=== PATIENT | female | born 1955 | race Caucasian/White ===

== ENCOUNTER 2017-07-28 11:35 | Emergency (ER) | payer MEDICAID ==
[~2017-07-28] VITALS: Ht 167.6 cm; Wt 71.5 kg
[2017-07-28 11:40] VITALS: Ht 167.6 cm; Wt 71.5 kg
[2017-07-28] MEDS ORDERED: CEPH-443 PO (13:02)
[2017-07-28] MEDS ORDERED: POLY10DR19 BOTH EYES (13:02)
--- NOTE | 2017-07-28 13:56 | ERD ---
ER Documentation Chief Complaint Date/Time DATE: 07/28/17 TIME: 13:42 Chief Complaint Complains of roight eye swelling and pain x 2 days HPI This is a 62-year-old female presents to the ER stating that she has some swelling below her right eye which started 2 days ago. Patient states that she does have mild eye redness, however does not have any discharge. Patient denies any trauma to the area and she denies any headaches, vision loss, vision changes. Denies any fevers or chills. She denies any eyeball pain. Patient is also complaining of a cold sore to her lower lip. Patient has been very stressed lately because her daughters have been sick. ROS 12 point review of systems was done, all negative except per HPI. Medications Home Meds Active Scripts Polymyxin B Sulfate-TMP* (Polymyxin B-TMP Eye Drops*) 10 Ml Drops, 1 DROP BOTH EYES QID for 7 Days, EA Prov:ELIGIO,VIVIANE C 07/28/17 Cephalexin* (Keflex*) 500 Mg Capsule, 500 MG PO BID for 7 Days, CAP Prov:ELIGIO,VIVIANE C 07/28/17 Allergies Allergies: Coded Allergies: morphine (Verified Allergy, Intermediate, 07/28/17) PMhx/Soc Medical and Surgical Hx: pt denies Medical Hx, pt denies Surgical Hx Hx Alcohol Use: No Hx Substance Use: No Hx Tobacco Use: No Smoking Status: Current every day smoker Physical Exam Vitals Vital Signs Date Time Temp Pulse Resp B/P Pulse Ox O2 Delivery O2 Flow Rate FiO2 07/28/17 11:40 98.6 65 20 133/69 98 Physical Exam GENERAL: The patient is well developed and appropriate for usual state of health , in no apparent distress. HEENT: Atraumatic. Conjunctive is slightly erythematous with no discharge. Pupils equal, round, and reactive to light. Extraocular muscles are grossly intact are not painful. Patient has some slight swelling below her right eye, that is ttp and slightly warm to the touch. NECK: C-spine is soft and supple. There is no cervical lymphadenopathy. CHEST: Clear to auscultation bilaterally. There are no rales, wheezes or rhonchi. HEART: Regular rate and rhythm. No murmurs, clicks, rubs or gallops. SKIN: The skin is warm and dry. Procedures/MDM This is a 62 y/o female that presents to the ER with some swelling below her eye. Area was slightly ttp, red and warm to the touch likely cellulitis. Patient will be sent home with Keflex and polytrim. Suspicion for orbital cellulitis is low, patient does not have any painful EOM's is afebrile and well appearing. Suspicion for retinal detachment, is low as patient does not have any vision loss/ vision changes. Suspicion for corneal abrasion or ulceration is low as patient does not have a hx of trauma to the area and is not c/o eye pain. I doubt acute angle closure glaucoma. I doubt retrobulbar hematoma. Patient needs to follow-up with her primary care doctor within 1-2 days or return to ER sooner if symptoms worsen. My medical decision making sure that the patient understands and agrees with plan. Departure Diagnosis: Primary Impression: Eye swelling Condition: Stable Patient Instructions: Swapna-Orbital Cellulitis Additional Instructions: Call your primary care doctor TOMORROW for an appointment during the next 1-2 days.See the doctor sooner or return here if your condition worsens before your appointment time. VIVIANE DEL VALLE Jul 28, 2017 13:52
== END 2017-07-28 14:10 | disposition home or self-care (01) ==
LOC: FTE 11:35
DX: H02.843 Edema of right eye, unspecified eyelid (principal); F17.210 Nicotine dependence, cigarettes, uncomplicated
CPT/HCPCS: 99284